=== PATIENT | male | born 1960 | race Caucasian/White ===

== ENCOUNTER 2019-07-11 09:59 | Emergency (ER) | payer OTHER ==
[2019-07-11 10:14] VITALS: BP 124/66; PULSE 67; TEMP 98.3; BMI 28.3
[2019-07-11] MEDS ORDERED: CLINDAMYCIN HCL 150 MG CAPSULE (FP) PO ONE (10:58)
[2019-07-11] MEDS ORDERED: CLINDAMYCIN HCL 150 MG CAPSULE (FP) ONE (10:59)
[2019-07-11] MEDS ORDERED: IBUPROFEN 600 MG TABLET (FP) PO ONE ×2 (11:00→11:02)
--- NOTE | 2019-07-11 11:09 | PDOC ---
History of Present Illness - General Chief Complaint: Abscess Boil Stated Complaint: Abscess Boil Time Seen by Provider: 07/11/19 10:37 History Source: Patient Exam Limitations: No Limitations - History of Present Illness Initial Comments: 07/11/19 11:05 58-year-old male presents to ED with a bump to his right upper quadrant in his mouth for the past 2 days now causing him discomfort to his right cheek. Patient states had a dental implant placed abruptly one year ago to the area. Patient denies fever, chills, headache neck pain, difficulty swallowing/ breathing Timing/Duration: getting worse Severity: mild Associated Symptoms: reports: denies symptoms Past History - Travel Traveled outside of the country in the last 30 days: No Close contact w/someone who was outside of country & ill: No - Past Medical History Allergies/Adverse Reactions: Allergies Allergy/AdvReac Type Severity Reaction Status Date / Time No Known Allergies Allergy Verified 03/02/13 15:44 Home Medications: Ambulatory Orders FA/Mv,Ca,Iron,Min/Lycopene/Lut [Centrum Tablet] 1 each PO DAILY 03/02/13 Vit D3-Vit K/Berberine/Hops [Ostera Tablet] 1 PO DAILY 03/02/13 Zinc 1 PO DAILY 03/02/13 Clindamycin [Cleocin -] 450 mg PO Q8H #72 capsule 07/11/19 Oxycodone HCl/Acetaminophen [Percocet 5-325 mg Tablet] 1 - 2 tab PO Q6H PRN #12 tab MDD 4 07/11/19 Anemia: No Asthma: No Cancer: No Cardiac Disorders: No CVA: No COPD: No CHF: No Dementia: No Diabetes: No GI Disorders: No Disorders: No HTN: No Hypercholesterolemia: No Liver Disease: No Seizures: No Thyroid Disease: No - Surgical History Abdominal Surgery: No Appendectomy: No Cardiac Surgery: No Cholecystectomy: No Lung Surgery: No Neurologic Surgery: No Orthopedic Surgery: Yes (SUDHEER. KNEE ARTHROSCOPY FOR TORN MINISCUS) - Suicide/Smoking/Psychosocial Hx Smoking History: Never smoked Have you smoked in the past 12 months: No Information on smoking cessation initiated: No Hx Alcohol Use: No Drug/Substance Use Hx: No Hx Substance Use Treatment: No Patient Lives Alone: Yes Lives with/in: lives alone Review of Systems - Review of Systems Able to Perform ROS?: Yes Constitutional: No: Symptoms Reported HEENTM: Yes: Dental Problems, Mouth Swelling Respiratory: No: Symptoms reported Cardiac (ROS): No: Symptoms Reported ABD/GI: No: Symptoms Reported : No: Symptoms Reported Musculoskeletal: No: Symptoms Reported Integumentary: No: Symptoms Reported Neurological: No: Symptoms reported *Physical Exam - Vital Signs Last Vital Signs Temp Pulse Resp BP Pulse Ox 98.3 F 67 16 124/66 97 07/11/19 10:11 07/11/19 10:11 07/11/19 10:11 07/11/19 10:11 07/11/19 10:11 - Physical Exam General Appearance: Yes: Nourished, Appropriately Dressed. No: Apparent Distress HEENT: positive: EOMI, JEFF, TMs Normal, Pharynx Normal, Other (Noted nondraining abscess to gingiva above tooth #7 ). negative: Pale Conjunctivae Neck: negative: Lymphadenopathy (R), Lymphadenopathy (L) Integumentary: positive: Normal Color, Warm, Moist, Swelling (rt lower tooth) ED Treatment Course - Medications Given in the ED: ED Medications Discontinued Medications Generic Name Dose Route Start Last Admin Trade Name Freq PRN Reason Stop Dose Admin Clindamycin HCl 450 mg 07/11/19 10:58 07/11/19 11:00 Cleocin - PO 07/11/19 10:59 450 mg ONCE ONE Administration Ibuprofen 600 mg 07/11/19 11:00 07/11/19 11:02 Motrin - PO 07/11/19 11:01 600 mg ONCE ONE Administration Medical Decision Making - Medical Decision Making 07/11/19 11:20 Complaint: Right upper dental pain with bumps for the past 2 days. No immunosuppression or history of diabetes Exam. Noted abscess to gingiva above tooth #7 Plan: Clindamycin and Percocet and patient to follow up with surgeon upon discharge *DC/Admit/Observation/Transfer Diagnosis at time of Disposition: Dental abscess - Discharge Dispostion Disposition: HOME Condition at time of disposition: Good - Prescriptions Prescriptions: Clindamycin [Cleocin -] 450 mg PO Q8H #72 capsule Oxycodone HCl/Acetaminophen [Percocet 5-325 mg Tablet] 1 - 2 tab PO Q6H PRN #12 tab MDD 4 PRN Reason: Pain - Referrals Referrals: Rafaela Toscano MD [Primary Care Provider] - - Patient Instructions Printed Discharge Instructions: DI for Tooth Abscess Additional Instructions: Please take medication at around 6pm. Take percocet as needed for discomfort but do not operate any heavy machinery while taking this medication. Follow-up with oral surgeon. You may take Motrin 600 mg as needed for discomfort - Post Discharge Activity
== END 2019-07-11 11:10 | disposition home or self-care (01) ==
LOC: JERFT 09:59
DX: K04.7 Periapical abscess without sinus (principal)
CPT/HCPCS: 99281-25